=== PATIENT | female | born 1990 | race Caucasian/White ===

== ENCOUNTER 2016-11-23 12:50 | Observation (INO) ==
[2016-11-23 13:18] LABS: Bilirubin,Urine Negative (Negative); Blood,Urine Negative (Negative); Clarity,Urine Cloudy (Clear); Color,Urine Yellow (Yellow); Glucose,Urine (UA) Normal (Normal); Ketones,Urine Negative (Negative); Leukocyte Esterase,Urine Small (Negative); Nitrite,Urine Negative (Negative); PH,Urine 7.5 pH Units (5.0-8.0); Protein,Urine Negative (Neg-Trace); Specific Gravity,Urine 1.011 (1.010-1.025); Urobilinogen,Urine Normal (Normal)
[2016-11-23 13:20] LABS: Bacteria,Urine Many per hpf (None-Few); Hyaline Casts,Urine None Seen per lpf (None-Few); Squamous Epithelial Cell,Urine Many per lpf (None-Few); WBC,Urine 15-30 per hpf (0-3)
[2016-11-23 13:35] LABS: Mucus,Urine Few (Few); RBC,Urine 0-3 per hpf (0-3)
--- NOTE | 2016-11-23 14:04 | Discharge Summary ---
Date of Encounter: 11/23/16 Time of Encounter: 14:03 - Discharge Diagnosis (1) 36 weeks gestation of Priority: Primary Status: Acute Comments: Admit for labor evaluation (2) UTI in Priority: Secondary Status: Acute Comments: treated with RX for keflex. - Discharge Medications Home Medications: Vitamins 1 tab PO DAILY 11/23/16 [History] Allergies/Adverse Reactions: Allergies No Known Allergies Allergy (Verified 10/16/15 04:08) Data Procedures and tests throughout hospitalization: Laboratory Tests 11/23/16 13:05 Urine Color Yellow Urine Clarity Cloudy A Urine pH 7.5 Ur Specific Mize 1.011 Urine Protein Negative Urine Glucose (UA) Normal Urine Ketones Negative Urine Blood Negative Urine Nitrite Negative Urine Bilirubin Negative Urine Urobilinogen Normal Ur Leukocyte Esterase Small H Urine Microscopic RBC 0-3 Urine Microscopic WBC 15-30 H Ur Squamous Epith Cells Many H Urine Bacteria Many H Hyaline Casts None Seen Urine Mucus Few Ur Culture Indicated? YES A Labs on day of discharge: Labs from last 24 hours 11/23/16 13:05 Urine Color Yellow Urine Clarity Cloudy A Urine pH 7.5 Ur Specific Mize 1.011 Urine Protein Negative Urine Glucose (UA) Normal Urine Ketones Negative Urine Blood Negative Urine Nitrite Negative Urine Bilirubin Negative Urine Urobilinogen Normal Ur Leukocyte Esterase Small H Urine Microscopic RBC 0-3 Urine Microscopic WBC 15-30 H Ur Squamous Epith Cells Many H Urine Bacteria Many H Hyaline Casts None Seen Urine Mucus Few Ur Culture Indicated? YES A Date of admission: 11/23/16 12:50 Primary care physician: PCP NO Discharging clinician: Danna Holder Anticipated date of discharge: 11/23/16 - Patient Status Disposition: Home, Self-Care Condition: Good Functional capacity at discharge: independent ambulation - Discharge Instructions Follow Up With: NO,PCP [Primary Care Provider] - Billie Sharma DO [Partnered Physician] - - Diet and Activity Activity: increase activity as tolerated Diet: regular diet Hospital Course FINANCIAL ADMINISTRATOR Hospital course: Patient is 26 y/o G at 36w3d presents to labor and delivery with c/o cramping. Patient reports +FM, denies any LOF or VB. Patient reports urinary frequency and hesitancy. Time Attestation: Total time spent providing and/or coordinating discharge services: Exam - Constitutional General appearance IM: A&O X 3, pleasant, obese, answers questions appropriately - Respiratory Respiratory exam: Present: CTAB - Cardiovascular Cardiovascular exam IM: Present: RRR, +S1, +S2 - GI/Abdominal GI/Abdominal exam IM: normal bowel sounds - Extremities Exam Extremities exam IM: Present: full ROM, normal capillary refill, normal inspection - Neurological Exam Neurological exam: alert, oriented X3, reflexes normal - VTE Reasons for not Prescribing Prophylaxis: Treatment not Indicated - Low risk for VTE
== END 2016-11-23 14:26 | disposition home or self-care (01) ==
LOC: 1NENULAB
PROVIDERS: ADMIT Obstetrics & Gynecology; ATTEND Obstetrics & Gynecology

== ENCOUNTER → 2016-12-03 16:55 | Observation (INO) ==
[2016-12-03 14:14] LABS: Basophils % 0.3 %; Eosinophils # 0.2 K/mcL (0.0-0.6); Eosinophils % 1.7 %; Hematocrit 33.7 % (35.3-44.9); Hemoglobin 11.5 g/dL (11.5-15.4); Immature Granulocytes % 0.7 % (0-4); Lymphocytes # 1.8 K/mcL (0.6-4.6); Lymphocytes % 17.4 %; Mean Corpuscular HGB Conc 34.1 g/dL (31.6-35.5); Mean Corpuscular Hemoglobin 27.6 pg (28.0-33.3); Mean Platelet Volume 10.2 fL (9.4-12.4); Monocytes # 0.8 K/mcL (0.0-1.3); Monocytes % 7.5 %; Neutrophils # 7.6 K/mcL (1.6-8.9); Platelet Count 183 K/mcL (140-400); Red Blood Count 4.16 M/mcL (3.82-4.97); Red Cell Distribution Width 14.6 % (11.5-14.5); Segmented Neutrophils % 72.4 %
[2016-12-03 14:25] LABS: Protein/Creatinine Ratio,Urine 0.12 mg/mg (0-0.20)
[2016-12-03 14:31] LABS: Alanine Aminotransferase 66 Units/L (0-55); Aspartate Amino Transferase 32 Units/L (5-34); BUN/Creatinine Ratio 7 (6-26); Blood Urea Nitrogen 4 mg/dL (7-20); Lactate Dehydrogenase 164 Units/L (159-327); Uric Acid 4.5 mg/dL (2.6-6.0); eGFR For African Americans > 60 (> 60); eGFR For Non-African Americans > 60 (> 60)
--- NOTE | 2016-12-03 15:01 | OB/GYN Progress Note ---
Date of Encounter: 12/03/16 Time of Encounter: 14:45 - Assessment and Plan (1) induced hypertension, antepartum Current Visit: Yes Status: Acute -No previous HTN episodes. Smoked 2 months into . Has quit since. No drinking. -Completely asymptomatic-denies blurry vision, MALHOTRA, numbness/tingling, CP, SOB, swelling in extremities. -Will get labs to evaluate for preeclampsia. -First time HTN, no need to start home medication at this time. -If persistent in followup visit with OB, consider starting labetolol. Plan -CBC, UA, BMP, protein/creatinine ratio -Discharge home if labs WNL and followup with OBGYN. (2) 38 weeks gestation of Current Visit: Yes Status: Acute -Uneventful . Subjective - Subjective Principal diagnosis: 38w, asymptomatic hypertension Interval history: 26F, (chart states ), 38w being evaluated for hypertension. Patient was in the office with Dr. Sharma when it was noted that her BP was >140/80. No previous history of HTN. She is currently asymptomatic and is feeling baby. Uncomplicated . She has no questions or concerns and feels like she can go home. GBS negative. Antepartum ROS: movement normal, no vaginal bleeding, no contractions Objective - Vital Signs Vital Signs: Intake and Output 12/02/16 12/03/16 12/03/16 23:59 07:59 15:59 Other: Weight 138.799 kg Patient Weight 12/03/16 23:59 Weight 138.799 kg - Exam FHR: auscultation normal Auscultation: bilateral: normal Abdomen: Present: normal appearance, soft, gravid. Absent: distention, tenderness - Labs Labs: Abnormal lab results Hct 33.7 % (35.3-44.9) L 12/03/16 13:58 MCV 81.0 fL (83.0-100.0) L 12/03/16 13:58 MCH 27.6 pg (28.0-33.3) L 12/03/16 13:58 RDW 14.6 % (11.5-14.5) H 12/03/16 13:58 BUN 4 mg/dL (7-20) L 12/03/16 13:58 Creatinine 0.55 mg/dL (0.57-1.11) L 12/03/16 13:58 ALT 66 Units/L (0-55) H 12/03/16 13:58
== END | disposition home or self-care (01) ==
LOC: 1NENULAB
PROVIDERS: ADMIT Student in an Organized Health Care Education/Training Program; ATTEND Student in an Organized Health Care Education/Training Program

== ENCOUNTER 2016-12-10 05:35 | Inpatient (IN) ==
[2016-12-10] MEDS ORDERED: Ringers Solution, Lactated 1,000 ML ONE ×2 (06:05→08:03)
[2016-12-10] MEDS ORDERED: Naloxone 0.4 MG/ML INJ IVP PRN (06:17)
[2016-12-10] MEDS ORDERED: Oxytocin 20 units/ LR 1000 mL 20 UNIT/1,000 ML BAG IVC ONE (06:17)
[2016-12-10] MEDS ORDERED: Ringers Solution, Lactated 1,000 ML IVC ONE (06:17)
[2016-12-10] MEDS ORDERED: CeFAZolin Pre 3,000 MG/100 ML 3,000 MG/100 ML BAG IVPB ONE (06:17)
[2016-12-10] MEDS ORDERED: Famotidine 20 MG/2 ML VIAL IVP ONE (06:17)
[2016-12-10] MEDS ORDERED: Metoclopramide 10 MG/2 ML VIAL IVP ONE (06:17)
[2016-12-10] MEDS ORDERED: Ringers Solution, Lactated 1,000 ML IVC SCH (06:30)
--- NOTE | 2016-12-10 06:50 | OB/GYN History & Physical ---
Date of Encounter: 12/10/16 Time of Encounter: 06:47 Assessment and Plan (1) 39 weeks gestation of Current visit: Yes Status: Acute (2) Previous delivery affecting Current visit: Yes Status: Acute Plan for repeat today. Risks, benefits and alternatives previously discussed. Patient had consult for possible and was told by MFM she is a poor candidate for successful outcome so she decided to proceed with repeat. She denies any questions today. Informed consent obtained in the office last week. (3) Obesity, morbid, BMI 50 or higher Current visit: Yes Status: Chronic History of Present Illness Chief complaint: repeat HPI: Ms. Courtney is a 26 year old female G3 P 1-0-1-1 at 39 weeks who presents for repeat section. She reports good movement and denies contractions , vaginal bleeding, or leaking fluid. Her has only been complicated by previous section and obesity. Past Med Surg Social Fam HX - Past Medical History Source: patient Medical history: no medical history Psychiatric history: no psych history - Past Surgical History Surgical History: , other - Social History Smoking Status: Former smoker Smokeless Tobacco Status: No Alcohol use: none Drug use: none - Family History Mother Adopted: No Family Member Ethnicity: Non- Living Status: Still Living Hx Family Cardiac Disorders: No Hx Family Respiratory Disorders: No Hx Family Cancer: No Hx Family GI Disorders: No Hx Family Genitourinary Disorders: No Hx Family Endocrine Disorder: No Hx Family Musculoskeletal Disorders: No Hx Family Neuromuscular Disorders: No Hx Family Neurologic Disorders: No Hx Family HEENT Disorders: No Hx Family Autoimmune Disorders: No Hx Family Reproductive Disorders: No Hx Family Psychosocial Disorders: No Hx Family Medical Disorders: No Obstetrical History - Pregnancies : 3 Para: 1 Term: 0 : 0 Ab's: 1 Livin Medications and Allergies Cephalexin [Keflex] 500 mg PO QID #28 capsule 11/23/16 [Rx] Vitamins 1 tab PO DAILY 11/23/16 [History] Allergies No Known Allergies Allergy (Verified 10/16/15 04:08) Review of System OB All systems PM: reviewed and no additional remarkable complaints except as stated Exam - Constitutional Constitutional: well developed, well nourished, no acute distress, obese - Lungs Respiratory exam: CTAB - Cardiovascular Cardiovascular exam: RRR - Abdomen Abdomen: Present: bowel sounds normal, gravid, non tender - Extremities Extremities exam: pedal edema Results All other labs normal. - VTE Reasons for not Prescribing Prophylaxis: Treatment not Indicated - Low risk for VTE
--- NOTE | 2016-12-10 07:04 | Anesthesia Evaluation PreOp ---
Date of Encounter: 12/10/16 Time of Encounter: 07:02 - Past History Planned Operation: repeat c/s [id number] Cardiac History: Denies any Significant Hx Pulmonary History: Denies Any Significant HX AIRCRAFT STRESS ANALYST History: Denies Any Significant HX Other Medical History: Denies Any Significant HX, Other (denies any complications with this preg. Denies scoliosi or bruising/bleeding easily. last c/s 2/2 FTP) Anesthesia History: No Prior Anesthetic Complications, Past Anesthesia (c/s) Alcohol Use: none Drug use: none Medications and Allergies Cephalexin [Keflex] 500 mg PO QID #28 capsule 11/23/16 [Rx] Vitamins 1 tab PO DAILY 11/23/16 [History] Allergies No Known Allergies Allergy (Verified 10/16/15 04:08) - Meds/Allergy Pre-op Review Medications Reviewed: Yes Allergies Reviewed: Yes Beta Blockers on Current Med List: No Anesthesia Results - Labs labs pending Anesthesia Exam O2 Sat Height 1.6 m Weight 139 kg Height: 1.6 Weight: 139 NPO (# of Hours): >8 - HEENT Pupil (Motor): Pupils equal, EOMI Mallampati: III () Teeth: Poor dentition (several cracked teeth) Oral Opening: Greater than 3 (good underbite) - AIRCRAFT STRESS ANALYST LOC: Oriented AIRCRAFT STRESS ANALYST Motor: Normal RUE, Normal LUE, Normal RLE, Normal LLE, Normal Face AIRCRAFT STRESS ANALYST Sensory: Normal: RUE, LUE, RLE, LLE, Face - Cardiac Rhythm: Regular Murmur: None - Pulmonary Breath Sounds: bilateral Clear Respiratory Effort: Symmetrical Anesthesia Assess/Plan ASA Score: 3 (mo) Modified Leota Scale for Level of Consciousness: Cooperative, oriented, and tranquil Anesthetic Plan: Regional Monitoring Plan: Standard Monitors Recovery Plan: PACU
[2016-12-10 07:09] LABS: Basophils % 0.1 %; Eosinophils # 0.3 K/mcL (0.0-0.6); Hemoglobin 11.6 g/dL (11.5-15.4); Immature Granulocytes % 0.6 % (0-4); Lymphocytes # 2.4 K/mcL (0.6-4.6); Lymphocytes % 18.8 %; Mean Corpuscular HGB Conc 34.1 g/dL (31.6-35.5); Mean Corpuscular Volume 81.9 fL (83.0-100.0); Mean Platelet Volume 10.3 fL (9.4-12.4); Monocytes # 0.8 K/mcL (0.0-1.3); Monocytes % 6.6 %; Neutrophils # 9.1 K/mcL (1.6-8.9); Platelet Count 221 K/mcL (140-400); Red Blood Count 4.15 M/mcL (3.82-4.97); Red Cell Distribution Width 14.5 % (11.5-14.5); Segmented Neutrophils % 71.9 %
[2016-12-10] MEDS ORDERED: *HR* Morphine Sulfate/PF 5 MG/10 ML AMPUL ONE (07:27)
[2016-12-10] MEDS ORDERED: *HR* FentaNYL (PF) 100 MCG/2 ML VIAL ONE (07:32)
[2016-12-10] MEDS ORDERED: *HR* Phenylephrine 10 MG/ML VIAL ONE (07:33)
[2016-12-10] MEDS ORDERED: EPHEDrine 50 MG/ML VIAL ONE (07:36)
[2016-12-10] MEDS ORDERED: *HR* Oxytocin 10 UNIT/ML VIAL IM ONE (07:37)
[2016-12-10] MEDS ORDERED: *HR* HYDROmorphone (PF) 1 MG/ML SYRINGE IVP PRN ×2 (08:27→11:18)
[2016-12-10] MEDS ORDERED: Ondansetron 4 MG/2 ML VIAL IVP ONE (08:27)
--- NOTE | 2016-12-10 09:00 | OB/GYN Procedure Note ---
Section - Date of procedure: 12/10/16 Preop diagnosis: desires repeat Post-op diagnosis: same Procedure: section, repeat low transverse Surgeon: Billie Sharma Estimated blood loss (cc): 600 Anesthesiologist: Tejas Alfred Hotbed Transfer Operator: Gerald Badleras Anesthesia Type: Spinal section complications: none Disposition: L&D Recovery Room Specimens: Placenta (hold) - Infant (s) A Infant Delivery Date: 12/10/16 Infant Delivery Time: 08:18 Presentation: vertex Position: OA Route of delivery: other ( section) Gender: Male Viability: Viable Pounds: 8 Ounces: 3 at 1 minute: 9 at 5 minutes: 9 Shoulder Dystocia: not encountered Placenta: spontaneous Cord: 3 umbilical vessels - Narrative Narrative: Patient was taken to the operative suite and placed under spinal anesthetic. She was then prepped and draped in normal sterile fashion in the dorsal supine position. Timeout was then performed. Antibiotics were given at room time. SCDs are on and active. Pfannenstiel skin incision is then made and carried through to underlying layer of fascia with the Bovie. The fascia was then incised in the midline and incision extended laterally with the Story scissors. The fascia was tented up and dissected off the rectus muscles sharply. The rectus muscles were in the midline and the peritoneum was tented up and entered sharply with the Metzenbaum scissors. The peritoneal incision was then extended bluntly. The Sorin retractor was then inserted. A low transverse uterine incision was then made. The infant vertex was brought to the incision and the infant was delivered using fundal pressure. There was no nuchal cord. The remainder of the delivered without difficulty. Cord was clamped and cut. Infant was handed to waiting nursery staff. Placenta delivered spontaneously complete and intact with a three-vessel cord. The uterus was cleared of all clots and debris using moist laparotomy sponge. The uterine incision was then closed using 0 Vicryl in a running locked fashion. A second layer of the same suture was used to obtain excellent hemostasis. The abdomen was then cleared of all clots and debris using irrigation. A piece of Interceed was placed over the uterine incision and a separate piece over the anterior uterine serosa. The fascial incision was then closed using 0 PDS in a running fashion. The skin was closed using 4-0 Vicryl in a subcuticular fashion. Fran dressing is then placed. Sponge, needle, and instrument counts are correct at the end of the procedure times 2. Mother and taken to recovery in stable condition.
--- NOTE | 2016-12-10 10:54 | Anesthesia Evaluation Post Op ---
Date of Encounter: 12/10/16 Time of Encounter: 10:45 - Vital Signs Vital Signs: 3 Vital Signs Time 1045 BP 134/92 Pulse 100 Resp 16 O2 Sat 98 - Lungs Lungs: Clear Ascult./Percussion - Airway Airway: Non-obstructed - Cardiovascular Regular Rate - Mental Status Mental Status: Alert & Oriented, Answers Appropriately - Pain Pain Scale: 2 Pain Scale used: Numeric (1 - 10) - Nausea Vomiting Nausea Vomiting: Not Present - Hydration Hydration: NPO, Burk catheter Notes: 12/10/16 10:54 patient moving lower extremities bilaterally - Discharge PostOp Status: Transfer Patient to floor
[2016-12-10] MEDS ORDERED: *HR* Morphine 2 MG/ML SYRINGE IVP PRN (11:18)
[2016-12-10] MEDS ORDERED: Acetaminophen 325 MG TABLET PO PRN (11:18)
[2016-12-10] MEDS ORDERED: Sennosides 8.6 MG TABLET PO PRN (11:18)
[2016-12-10] MEDS ORDERED: Simethicone 80 MG TAB.CHEW PO PRN (11:18)
[2016-12-10] MEDS ORDERED: Metoclopramide 10 MG/2 ML VIAL IVP PRN (11:18)
[2016-12-10] MEDS ORDERED: Measles/Mumps/Rubella Vacc 0.5 ML VIAL SQ ONE (11:18)
[2016-12-10] MEDS ORDERED: Oxytocin 20 units/ LR 1000 mL 20 UNIT/1,000 ML BAG IV SCH (11:18)
[2016-12-10] MEDS ORDERED: Ondansetron 4 MG/2 ML VIAL IVP PRN (11:18)
[2016-12-10] MEDS: *HR* OxyCODONE/APAP 5/325 TABLET PO PRN ×2 (14:28→18:33)
[2016-12-10] MEDS: cephALEXin 500 MG CAPSULE PO SCH ×2 (14:31→18:33)
[2016-12-10] MEDS: Ibuprofen 600 MG TABLET PO PRN (18:33)
[2016-12-11] MEDS: Ibuprofen 600 MG TABLET PO PRN ×4 (00:36→23:45)
[2016-12-11] MEDS: cephALEXin 500 MG CAPSULE PO SCH ×4 (00:36→18:45)
[2016-12-11 06:57] LABS: Basophils % 0.3 %; Eosinophils # 0.2 K/mcL (0.0-0.6); Eosinophils % 2.4 %; Immature Granulocytes % 0.6 % (0-4); Lymphocytes # 1.7 K/mcL (0.6-4.6); Lymphocytes % 17.5 %; Mean Corpuscular HGB Conc 34.2 g/dL (31.6-35.5); Mean Corpuscular Hemoglobin 28.6 pg (28.0-33.3); Mean Corpuscular Volume 83.6 fL (83.0-100.0); Mean Platelet Volume 10.2 fL (9.4-12.4); Monocytes # 0.9 K/mcL (0.0-1.3); Monocytes % 8.9 %; Neutrophils # 6.9 K/mcL (1.6-8.9); Platelet Count 159 K/mcL (140-400); Red Blood Count 3.11 M/mcL (3.82-4.97); Red Cell Distribution Width 14.8 % (11.5-14.5); Segmented Neutrophils % 70.3 %
[2016-12-11 06:58] LABS: Hemoglobin 8.9 g/dL (11.5-15.4)
[2016-12-11] MEDS: Prenatal Vit/FA 1 EACH TABLET PO SCH (09:39)
--- NOTE | 2016-12-11 10:48 | OB/GYN Progress Note ---
Date of Encounter: 12/11/16 Time of Encounter: 10:46 - Assessment and Plan (1) S/P section Current Visit: Yes Status: Acute Pt meeting all post-op milestones. Anticipate discharge home POD#2. (2) Obesity, morbid, BMI 50 or higher Current Visit: Yes Status: Chronic (3) induced hypertension, antepartum Current Visit: No Status: Acute BP normal post-op. Subjective - Subjective Patient reports: appetite normal, voiding normally, pain well controlled, ambulating normally : doing well Objective - Vital Signs Latest vital signs: Vital Signs Temp Pulse Resp BP Pulse Ox 12/11/16 08:20 98.5 F 84 16 119/81 97 12/11/16 04:15 98.2 F 91 14 117/77 97 12/11/16 00:30 98.4 F 98 16 115/80 99 12/10/16 19:40 98.3 F 103 14 120/77 98 12/10/16 14:10 98.0 F 92 16 101/74 12/10/16 13:00 98.6 F 105 16 123/86 12/10/16 12:00 97.6 F 94 16 108/75 12/10/16 11:30 98.8 F 96 16 123/82 12/10/16 11:00 98.4 F 92 16 123/78 97 Intake and Output 12/10/16 12/11/16 12/11/16 23:59 07:59 15:59 Intake Total 480 / 480 960 / 960 600 / 600 Output Total 1000 / 1000 Balance 480 / 480 -40 / -40 600 / 600 Intake: IV Fluids 960 / 960 Pitocin 20 unit In 1,000 960 / 960 ml @ 125 mls/hr IV .Q8H [facility] Rx#:[id number] Oral 480 / 480 600 / 600 Output: Catheter 1000 / 1000 - Exam Lungs: bilateral: normal Chest: Normal S1, Normal S2 Extremities: Present: edema (2+ bilaterally) Abdomen: Present: soft Incision: Present: dressed (dressing with scant amout old drainage.) Uterus: Present: firm - Labs Labs: Laboratory Results - last 24 hr 12/11/16 06:45 WBC 9.9 RBC 3.11 L Hgb 8.9 L D Hct 26.0 L MCV 83.6 MCH 28.6 MCHC 34.2 RDW 14.8 H Plt Count 159 MPV 10.2 Immature Gran % 0.6 Seg Neutrophils % 70.3 Lymphocytes % 17.5 Monocytes % 8.9 Eosinophils % 2.4 Basophils % 0.3 Neutrophils # 6.9 Lymphocytes # 1.7 Monocytes # 0.9 Eosinophils # 0.2 Basophils # 0.0
[2016-12-11] MEDS: *HR* OxyCODONE/APAP 5/325 TABLET PO PRN (14:38)
[2016-12-12] MEDS ORDERED: *HR* HYDROcodone/Acet 5/325 mg TABLET PO PRN (02:36)
[2016-12-12] MEDS: Ibuprofen 600 MG TABLET PO PRN (08:31)
[2016-12-12] MEDS: Prenatal Vit/FA 1 EACH TABLET PO SCH (08:32)
--- NOTE | 2016-12-12 11:37 | Discharge Summary ---
Date of Encounter: 12/12/16 Time of Encounter: 11:33 - Discharge Diagnosis (1) S/P section Priority: Primary Status: Acute Comments: Pt c/o MALHOTRA that is worse when sitting and standing and improves with laying flat in bed. Caffeine an motrin given. Anesthesia called to evaluate. Pt reports significant improvement in sx after treatment. (2) Obesity, morbid, BMI 50 or higher Priority: Secondary Status: Chronic (3) induced hypertension, antepartum Priority: Secondary Status: Acute - Discharge Medications Prescriptions: HYDROcodone/Acet 5/325 mg [[place] 5-325 mg] 1 tab PO Q4HR PRN #30 tablet PRN Reason: Pain Ibuprofen [Motrin] 600 mg PO Q6HR PRN #60 tablet PRN Reason: Cramping Docusate [Colace] 100 mg PO BID #60 capsule Ferrous Sulfate 325 mg PO DAILY #30 tablet Home Medications: Cephalexin [Keflex] 500 mg PO QID #28 capsule 11/23/16 [Rx] Vitamins 1 tab PO DAILY 11/23/16 [History] Docusate [Colace] 100 mg PO BID #60 capsule 12/12/16 [Rx] Ferrous Sulfate 325 mg PO DAILY #30 tablet 12/12/16 [Rx] HYDROcodone/Acet 5/325 mg [[place] 5-325 mg] 1 tab PO Q4HR PRN #30 tablet [Rx] Ibuprofen [Motrin] 600 mg PO Q6HR PRN #60 tablet 12/12/16 [Rx] Simethicone [Gas-X] 80 mg PO TID PRN #0 tab.chew 12/12/16 [Rx] Allergies/Adverse Reactions: Allergies No Known Allergies Allergy (Verified 10/16/15 04:08) Data Procedures and tests throughout hospitalization: Laboratory Tests 12/10/16 12/11/16 06:55 06:45 WBC 12.7 H 9.9 RBC 4.15 3.11 L Hgb 11.6 8.9 L D Hct 34.0 L 26.0 L MCV 81.9 L 83.6 MCH 28.0 28.6 MCHC 34.1 34.2 RDW 14.5 14.8 H Plt Count 221 159 MPV 10.3 10.2 Immature Gran % 0.6 0.6 Seg Neutrophils % 71.9 70.3 Lymphocytes % 18.8 17.5 Monocytes % 6.6 8.9 Eosinophils % 2.0 2.4 Basophils % 0.1 0.3 Neutrophils # 9.1 H 6.9 Lymphocytes # 2.4 1.7 Monocytes # 0.8 0.9 Eosinophils # 0.3 0.2 Basophils # 0.0 0.0 Date of admission: 12/10/16 05:35 Primary care physician: PCP MICHELLE Discharging clinician: Niesha Ulrich Anticipated date of discharge: 12/12/16 - Patient Status Disposition: Home, Self-Care Condition: Good Functional capacity at discharge: independent ambulation Overall status at discharge: patient is progressing back to baseline - Discharge Instructions Follow Up With: NO,PCP [Primary Care Provider] - Billie Sharma, [Partnered Physician] - - Diet and Activity Activity: increase activity as tolerated Diet: advance to your usual diet Hospital Course Reason for admission: section Delivery: section Episiotomy: none Laceration: none Other procedures: none complications: none Discharge diagnosis: IUP at term delivered [place] baby: male Hospital course: - Date of procedure: 12/10/16 Preop diagnosis: desires repeat Post-op diagnosis: same Procedure: section, repeat low transverse Surgeon: Billie Sharma Estimated blood loss (cc): 600 Anesthesiologist: Tejas Alfred Pickle Solution Maker: Gerald Balderas Anesthesia Type: Spinal section complications: none Disposition: L&D Recovery Room Specimens: Placenta (hold) - Infant (s) A Delivery Date: 12/10/16 Delivery Time: 08:18 Presentation: vertex Position: OA Route of delivery: other ( section) Gender: Male Viability: Viable Pounds: 8 Ounces: 3 at 1 minute: 9 at 5 minutes: 9 Shoulder Dystocia: not encountered Placenta: spontaneous Cord: 3 umbilical vessels Time Attestation: Total time spent providing and/or coordinating discharge services: Time Spent: Less than 30 minutes - VTE Reasons for not Prescribing Prophylaxis: Treatment not Indicated - Low risk for VTE Documentation of Mechanical Device: Intermittent pneumatic compression device Exam - Constitutional Vitals: Temp Pulse Resp BP Pulse Ox 97.1 F L 93 16 137/84 99 12/12/16 08:20 12/12/16 08:20 12/12/16 08:20 12/12/16 08:20 12/12/16 08:20 General appearance IM: A&O X 3, morbidly obese, pleasant, no acute distress - Respiratory Respiratory exam: Present: CTAB - Cardiovascular Cardiovascular exam IM: Present: RRR, +S1, +S2 - GI/Abdominal GI/Abdominal exam IM: soft, no peritoneal signs Incision: dressed (SANTANA dry and intact, pt instructed to remove dressing on POD# 7) - Rectal Rectal exam: deferred - Uterine Tone: Firm - Extremities Exam Extremities exam IM: Present: pedal edema (3+ edema bilaterally, no erythema or warmth) - Psychiatric Additional comments: Pt reports good mood
--- NOTE | 2016-12-12 12:09 | Anesthesia Progress Note ---
Date of Encounter: 12/12/16 Time of Encounter: 10:45 Anesthesia Note - Note Note: 12/12/16 12:06 Called to evaluate patient for possible post dural puncture headache s/p c- section 2 days ago. Pt sitting up in bed with lights on and watching tv. Pt had just taken a shower after receiving fluids and caffeine. Risks and benefits explained on epidural blood patch and unnecessary risks taken on by pt if proceeds. Recommend to not undergo another procedure d/t difficulty of spinal. Pt agrees that conservative management with fluids is adequate.
[2016-12-12 12:18] VITALS: BP 130/87
== END 2016-12-12 13:50 | disposition home or self-care (01) | DRG 540 ==
LOC: 1NENULAB 05:35 → 1NENUOBS 11:08
PROVIDERS: ADMIT Obstetrics & Gynecology; ATTEND Obstetrics & Gynecology